=== PATIENT | male | born 1960 | race Two or more races ===

== ENCOUNTER 2018-05-27 21:38 | Observation (INO) | payer MEDICAID ==
[~2018-05-27] VITALS: Ht 185.4 cm; Wt 127.0 kg
[2018-05-27] MEDS ORDERED: NIFEdipine 10 MG CAP PO ONE (22:15)
[2018-05-27 22:26] LABS: Basophils # (auto) 0 uL; Basophils % (auto) 0.6 % (0.0-2.0); Eosinophils # (auto) 0.2 uL; Eosinophils % (auto) 2.6 % (0.0-7.0); Hematocrit 37.6 % (41.0-53.0); Hemoglobin 13.1 g/dL (13.5-17.5); Lymphocytes # (auto) 1.3 uL; Lymphocytes % (auto) 22.6 % (10.0-50.0); Mean Corpuscular Hemoglobin 31.6 pg (28.0-32.0); Mean Corpuscular Hgb Conc. 34.8 g/dL (32.0-36.0); Mean Corpuscular Volume 90.7 fL (80.0-100.0); Monocytes # (auto) 0.5 uL; Monocytes % (auto) 8.7 % (0.0-12.0); Neutrophils # (auto) 3.8 uL; Neutrophils % (auto) 65.5 % (37.0-80.0); Nucleated Red Blood Cells % 0.1 %; Platelet Count (auto) 256 10^3/uL (140-450); Red Blood Cells 4.14 10^6/uL (4.5-5.90); Red Cell Distribution Width 12.2 % (11.8-14.3); White Blood Cell 5.8 10^3/uL (4.4-10.8)
[2018-05-27 22:48] LABS: Alanine Aminotransferase 41 U/L (16-61); Albumin 4.2 g/dL (3.4-5.0); Alkaline Phosphatase 54 U/L (45-117); Anion Gap 9 (5-15); Aspartate Aminotransferase 33 U/L (15-37); Bilirubin, Total 0.3 mg/dL (0.2-1.0); Blood Urea Nitrogen 7 mg/dL (7-18); Calcium 8.3 mg/dL (8.5-10.1); Carbon Dioxide 24 mmol/L (21-32); Chloride 106 mmol/L (98-107); GFR African American 84 mL/min; GFR Non-African American 69 mL/min; Glucose 89 mg/dL (74-106); Potassium 3.3 mmol/L (3.5-5.1); Sodium 139 mmol/L (136-145); Total Protein 7.6 g/dL (6.4-8.2)
[2018-05-28 05:55] LABS: Basophils # (auto) 0.1 uL; Basophils % (auto) 1.1 % (0.0-2.0); Eosinophils # (auto) 0.1 uL; Eosinophils % (auto) 2.3 % (0.0-7.0); Hematocrit 38.4 % (41.0-53.0); Hemoglobin 12.8 g/dL (13.5-17.5); Lymphocytes # (auto) 1.6 uL; Lymphocytes % (auto) 24.8 % (10.0-50.0); Mean Corpuscular Hgb Conc. 33.3 g/dL (32.0-36.0); Mean Corpuscular Volume 90.2 fL (80.0-100.0); Monocytes # (auto) 0.6 uL; Monocytes % (auto) 8.9 % (0.0-12.0); Neutrophils # (auto) 4.1 uL; Neutrophils % (auto) 62.9 % (37.0-80.0); Platelet Count (auto) 258 10^3/uL (140-450); Red Blood Cells 4.26 10^6/uL (4.5-5.90); Red Cell Distribution Width 12.4 % (11.8-14.3); White Blood Cell 6.6 10^3/uL (4.4-10.8)
[2018-05-28 06:09] VITALS: BP 116/63
[2018-05-28 06:13] LABS: INR 1.08 (0.9-1.15); Partial Thromboplastin Time 28.4 sec (23.78-33.04); Prothrombin Time 11.5 sec (9.27-12.13)
[2018-05-28 06:15] LABS: Alanine Aminotransferase 38 U/L (16-61); Albumin 4.1 g/dL (3.4-5.0); Alkaline Phosphatase 56 U/L (45-117); Anion Gap 10 (5-15); Aspartate Aminotransferase 33 U/L (15-37); Bilirubin, Total 0.2 mg/dL (0.2-1.0); Blood Urea Nitrogen 8 mg/dL (7-18); Calcium 8.6 mg/dL (8.5-10.1); Carbon Dioxide 23 mmol/L (21-32); Chloride 110 mmol/L (98-107); GFR African American 100 mL/min; GFR Non-African American 82 mL/min; Glucose 95 mg/dL (74-106); Magnesium 2.6 mg/dL (1.6-2.6); Potassium 3.9 mmol/L (3.5-5.1); Sodium 143 mmol/L (136-145); Total Protein 7.4 g/dL (6.4-8.2)
[2018-05-28] MEDS ORDERED: POTASSIUM EFFERVESENT TAB 25 MEQ PO ONE (06:30)
[2018-05-28 06:32] LABS: Urine Bacteria FEW /hpf (None Seen); Urine Blood Negative /uL (Negative); Urine Specific Gravity 1.006 (1.001-1.035); Urine WBC <1 /hpf (0 - 3)
== END 2018-05-28 06:54 | disposition home or self-care (01) | DRG 207 ==
LOC: EDBD 21:38 → ER 21:45 → OVERFLOW 21:46 → ER 05-28 06:54
PROVIDERS: ADMIT Emergency Medicine; ATTEND Emergency Medicine
DX: R00.2 Palpitations (principal); E78.5 Hyperlipidemia, unspecified; E87.6 Hypokalemia
CPT/HCPCS: 36415; 71045; 80053; 81001; 83735; 83880; 84443; 84484; 85025; 85379; 85610; 85730; 93005; 99285; G0378